=== PATIENT | female | born 1955 | race Hispanic/Latino ===

== ENCOUNTER 2023-05-29 09:36 | Observation (INO) | payer OTHER ==
--- NOTE | 2023-05-24 09:52 | RAD REPORT ---
EXAM DESCRIPTION: Miguel Melendez (2 Views)05/24/2023 9:41 am CLINICAL HISTORY: Preop for knee arthroplasty COMPARISON: 2021 FINDINGS: The lungs appear clear of acute infiltrate. The heart is normal size IMPRESSION: No acute abnormalities displayed
[2023-05-24 10:28] LABS: Absolute Lymphocytes (CBC) 2.5 K/uL (0.7-4.9); Hematocrit 38.8 % (36.0-45.0); Lymphocytes % 34.1 % (15.3-44.8); MCV 88.4 fL (80-100); MPV 7.9 fL (7.6-11.3); Platelets 342 thou/uL (152-406); RBC Red Blood Cell Count 4.39 M/uL (3.86-4.86)
[2023-05-24 10:35] LABS: Protime INR 1.07
[2023-05-24 10:43] LABS: Potassium 4.2 mEq/L (3.5-5.1)
[2023-05-29] MEDS ORDERED: CEFAZOLIN SODIUM 1 GM/VIAL ONE (09:53)
[2023-05-29] MEDS ORDERED: GABAPENTIN 100 MG CAP ONE (09:55)
[2023-05-29] MEDS ORDERED: Oxycodone HCl/Acetaminophen 5/325 MG TAB ONE (09:56)
[2023-05-29] MEDS ORDERED: ACETAMINOPHEN 500 MG TAB ONE (09:56)
[2023-05-29] MEDS ORDERED: Ringers Lactate 1,000 ML IV ONE (09:58)
[2023-05-29] MEDS ORDERED: CELECOXIB 100 MG CAPSULE ONE (09:58)
[2023-05-29] MEDS ORDERED: EPINEPHRINE 1 MG/ML VIAL ONE (09:59)
[2023-05-29] MEDS ORDERED: FENTANYL CITR 100 MCG/2 ML ONE (09:59)
[2023-05-29] MEDS ORDERED: DEXMEDETOMIDINE HCL 200 MCG/2 ML VIAL ONE (09:59)
[2023-05-29] MEDS ORDERED: LIDOCAINE 1% MPF 5 ML VIAL ONE (09:59)
[2023-05-29] MEDS ORDERED: dexAMETHasone 10 MG/ML VIAL ONE ×2 (09:59→11:23)
[2023-05-29] MEDS ORDERED: MAGNESIUM SULFATE 1 gm IVPB 1 GM/100 ML BAG IV ONE (10:00)
[2023-05-29] MEDS ORDERED: MIDAZOLAM HCL 2 MG/2 ML INJ ONE (10:00)
[2023-05-29] MEDS ORDERED: BUPIVACAINE 0.25% PF 30 ML VIAL ONE (10:00)
[2023-05-29] MEDS ORDERED: propofoL 200 MG/20 ML VIAL IV ONE (11:23)
[2023-05-29] MEDS ORDERED: ONDANSETRON 4 MG/2 ML VIAL ONE (11:23)
[2023-05-29] MEDS ORDERED: KETAMINE HCL IN 0.9 % NACL 50 MG/5 ML SYRINGE IV ONE (11:23)
[2023-05-29] MEDS ORDERED: LIDOCAINE 2% MPF 5 ML VIAL ONE (11:23)
[2023-05-29] MEDS ORDERED: KETOROLAC 30 MG/ML INJ ONE (11:23)
[2023-05-29] MEDS: TRANEXAMIC ACID 1,000 MG/10 ML VIAL IV ONE ×2 (11:50→12:34)
[2023-05-29] MEDS ORDERED: NS 0.9% VIAL 10 ML ONE (11:59)
[2023-05-29] MEDS ORDERED: ONDANSETRON 4 MG/2 ML VIAL IV PRN (13:57)
[2023-05-29] MEDS ORDERED: DOCUSATE NA 100 MG CAP PO PRN (13:57)
[2023-05-29] MEDS ORDERED: ACETAMINOPHEN 325 MG TABLET PO PRN (13:57)
--- NOTE | 2023-05-29 13:57 | P.BOP ---
Preoperative diagnosis: right knee osteoarthritis Postoperative diagnosis: same Primary procedure: right total knee arthroplasty Face Cleaner: NONE,NONE Estimated blood loss: 50 cc Specimen: right knee bone remnants Findings: see dictation Anesthesia: General Complications: None Implants: [employer] Chhaya Persona 9 CR femur, E tibia, 10 CR poly, 32 patella Fluids & blood products: per anesthesia record; TT: 63 mins @ 300 mmHg Transferred to: Recovery Room Condition: Good
[2023-05-29] MEDS ORDERED: TRAMADOL HCL 50 MG TAB PO PRN (13:59)
[2023-05-29 15:05] LABS: Hematocrit 36.6 % (36.0-45.0)
--- OUTSIDE RECORDS SUMMARY | 2023-05-29 15:13 | XMS REPORT | Continuity of Care Document ---
Author Name Unknown Address [address] [facility] [place]. [address] [place] [address] [facility] thconnect Address [address] [facility]. [address] [place] [address] Care Team Providers Care Barn Hand Name Role Phone Teofilo MONROE, [facility] Primary Care Physician [phone] Payers Payer Name Policy Type Policy Number Effective Date Expirati on Date Source [facility] MCR Advantage (HMO-POS) [id number] 2021 00:00:00 [facility] Problems Condition Name Condition Details Condition Category Status Onset Date Resolution Date Last Treatment Date Treating Clinician Comments Source [id number] Primary osteoarthr itis of right knee Problem [facility] Social History Social Habit Start Date Stop Date Quantity Comments Source Sex Assigned At [facility] History of Tobacco Use [facility] Smoking Status Start Date Stop Date Source Never Smoker [facility] Medications Ordered Medication Name Filled Medication Name Start Date Stop Date Current Medication? Ordering Clinician Indication Dosage Frequency Signature (SIG) Comments Components Source Nabumetone 750 MG Nabumetone 750 MG 11-26 00:00: 00 No BID Nabumetone 750 MG Nabumetone 750 MG Nabumetone 750 MG 11-26 00:00: 00 No BID Nabumetone 750 MG Nabumetone 750 MG Nabumetone 750 MG 3-0 7-24 00:00: 00 No BID Nabumetone 750 MG Nabumetone 750 MG Nabumetone 750 MG 3-0 7-24 00:00: 00 No BID Nabumetone 750 MG Nabumetone 750 MG Nabumetone 750 MG 3-0 7-24 00:00: 00 No BID Nabumetone 750 MG Nabumetone 750 MG Nabumetone 750 MG 3-0 7-24 00:00: 00 No BID Nabumetone 750 MG Nabumetone 750 MG Nabumetone 750 MG 3-0 7-24 00:00: 00 No BID Nabumetone 750 MG Nabumetone 750 MG Nabumetone 750 MG 3-0 7-24 00:00: 00 No BID Nabumetone 750 MG Nabumetone 750 MG Nabumetone 750 MG 3-0 7-24 00:00: 00 No BID Nabumetone 750 MG Nabumetone 750 MG Nabumetone 750 MG 3-0 7-24 00:00: 00 No BID Nabumetone 750 MG Nabumetone 750 MG Nabumetone 750 MG 3-0 7-24 00:00: 00 No BID Nabumetone 750 MG [facility] Hyalgan 2022-0 -22 00:00: 00 [facility] [place] Hyalgan 3-0 5-22 00:00: 00 No [facility]mL [facility] Hy[place] Hyalgan 3-0 -22 00:00: 00 No [facility]mL [facility] Hy[place] Hyalgan 3-0 5-22 00:00: 00 No [facility]mL [facility] Hy[facility] Hyalgan 3-0 -22 00:00: 00 No 2mL [facility] Hyalgan Hyalgan 3-0 5-22 00:00: 00 No [facility] Hyalgan Hyalgan 3-0 5-22 00:00: 00 No 2mL [facility] Hyalgan Hyalgan 3-0 5-22 00:00: 00 No 2mL [facility] Hyal[place] Hyalgan 2022-0 5-22 00:00: 00 No 2mL [facility] Hyal[place] Hyalgan 2022-0 5-22 00:00: 00 No 2mL [facility] Hyalgan Hyalgan 2022-0 5-22 00:00: 00 No 2mL [facility] Hyalgan Hyalgan 2022-0 5-15 00:00: 00 No 2mL [facility] Hyalgan Hyalgan 2022-0 5-15 00:00: 00 No 2mL [facility] Hyalgan Hyalgan 2022-0 5-15 00:00: 00 No 2mL [facility] Hyalgan Hyalgan 2022-0 5-15 00:00: 00 No 2mL [facility] Hyalgan Hyalgan 2022-0 5-15 00:00: 00 No 2mL [facility] Hyalgan Hyalgan 2022-0 5-15 00:00: 00 No 2mL [facility] Hyalgan Hyalgan 2022-0 5-15 00:00: 00 No 2mL [facility] Hyalgan Hyalgan 2022-0 5-15 00:00: 00 No 2mL [facility] Hyalgan Hyalgan 3-0 5-15 00:00: 00 No 2mL [facility] Hyalgan Hyalgan 3-0 5-15 00:00: 00 No 2mL [facility] Hyalgan Hyalgan 3-0 5-15 00:00: 00 No 2mL [facility] Hyalgan Hyalgan 3-0 5-08 00:00: 00 No 2mL [facility] Bupivicaine Axis Bupivicaine Axis 2022-0 5-08 00:00: 00 No 4mL [facility] Kenalog (Triamcinol one) Kenalog (Triamcinol one) 2022-0 5-08 00:00: 00 No [facility]mL [facility] Hyalgan Hyalgan 0 09-10 00:00: 00 No 2mL [facility] Bupivicaine Axis Bupivicaine Axis 0 09-10 00:00: 00 No 4mL [facility] Kenalog (Triamcinol one) Kenalog (Triamcinol one) 0 09-10 00:00: 00 No 1mL [facility] Hyalgan Hyalgan 0 09-10 00:00: 00 No 2mL [facility] Bupivicaine Axis Bupivicaine Axis 0 09-10 00:00: 00 No 4mL [facility] Kenalog (Triamcinol one) Kenalog (Triamcinol one) 0 09-10 00:00: 00 No 1mL [facility] Hyalgan Hyalgan 0 09-10 00:00: 00 No 2mL [facility] Bupivicaine Axis Bupivicaine Axis 0 09-10 00:00: 00 No 4mL [facility] Kenalog (Triamcinol one) Kenalog (Triamcinol one) 0 09-10 00:00: 00 No 1mL [facility] Hyalgan Hyalgan 0 09-10 00:00: 00 No 2mL [facility] Bupivicaine Axis Bupivicaine Axis 0 09-10 00:00: 00 No 4mL [facility] Kenalog (Triamcinol one) Kenalog (Triamcinol one) 0 09-10 00:00: 00 No 1mL [facility] Hyalgan Hyalgan 0 08 00:00: 00 No 2mL [facility] Bupivicaine Axis Bupivicaine Axis 0 08 00:00: 00 No 4mL [facility] Kenalog (Triamcinol one) Kenalog (Triamcinol one) 0 09-10 00:00: 00 No 1mL [facility] Hyalgan Hyalgan 0 09-10 00:00: 00 No 2mL [facility] Bupivicaine Axis Bupivicaine Axis 0 09-10 00:00: 00 No 4mL [facility] Kenalog (Triamcinol one) Kenalog (Triamcinol one) 09-10 00:00: 00 No 1mL [facility] Hyalgan Hyalgan 0 09-10 00:00: 00 No 2mL [facility] Bupivicaine Axis Bupivicaine Axis 09-10 00:00: 00 No 4mL [facility] Kenalog (Triamcinol one) Kenalog (Triamcinol one) 09-10 00:00: 00 No 1mL [facility] Hyalgan Hyalgan 0 09-10 00:00: 00 No 2mL [facility] Bupivicaine Axis Bupivicaine Axis 09-10 00:00: 00 No 4mL [facility] Kenalog (Triamcinol one) Kenalog (Triamcinol one) 09-10 00:00: 00 No 1mL [facility] Hyalgan Hyalgan 0 09-10 00:00: 00 No 2mL [facility] Bupivicaine Axis Bupivicaine Axis 0 09-10 00:00: 00 No 4mL [facility] Kenalog (Triamcinol one) Kenalog (Triamcinol one) 09-10 00:00: 00 No 1mL [facility] Hyalgan Hyalgan 0 09-10 00:00: 00 No 2mL [facility] Bupivicaine Axis Bupivicaine Axis 0 09-10 00:00: 00 No 4mL [facility] Kenalog (Triamcinol one) Kenalog (Triamcinol one) 0 5-08 00:00: 00 No 1mL [facility] Bupivicaine Axis Bupivicaine Axis 2021-05 0-24 00:00: 00 No 2.5mg [facility] Synvisc One Synvisc One 2021-05 0-24 00:00: 00 No 8mg [facility] Kenalog (Triamcinol one) Kenalog (Triamcinol one) 2021-05 0-24 00:00: 00 No 40mg [facility] Bupivicaine Axis Bupivicaine Axis 2021-05 024 00:00: 00 No 2.5mg [facility] Synvisc One Synvisc One 2021-05 0-24 00:00: 00 No 8mg [facility] Kenalog (Triamcinol one) Kenalog (Triamcinol one) 2021-05 0-24 00:00: 00 No 40mg [facility] Bupivicaine Axis Bupivicaine Axis 2021-05 024 00:00: 00 No 2.5mg [facility] Synvisc One Synvisc One 2021-05 024 00:00: 00 No 8mg [facility] Kenalog (Triamcinol one) Kenalog (Triamcinol one) 2021-05 0-24 00:00: 00 No 40mg [facility] Bupivicaine Axis Bupivicaine Axis 2021-05 0-24 00:00: 00 No 2.5mg [facility] Synvisc One Synvisc One 2021-05 0-24 00:00: 00 No 8mg [facility] Kenalog (Triamcinol one) Kenalog (Triamcinol one) 2021-05 0-24 00:00: 00 No 40mg [facility] Bupivicaine Axis Bupivicaine Axis 2021-05 024 00:00: 00 No 2.5mg [facility] Synvisc One Synvisc One 2021-05 024 00:00: 00 No 8mg [facility] Kenalog (Triamcinol one) Kenalog (Triamcinol one) 2021-05 0-24 00:00: 00 No 40mg [facility] Bupivicaine Axis Bupivicaine Axis 2021-05 024 00:00: 00 No 2.5mg [facility] Synvisc One Synvisc One 2021-05 024 00:00: 00 No 8mg [facility] Kenalog (Triamcinol one) Kenalog (Triamcinol one) 2021-05 024 00:00: 00 No 40mg [facility] Bupivicaine Axis Bupivicaine Axis 2021-05 024 00:00: 00 No 2.5mg [facility] Synvisc One Synvisc One 2021-05 024 00:00: 00 No 8mg [facility] Kenalog (Triamcinol one) Kenalog (Triamcinol one) 2021-05 024 00:00: 00 No 40mg [facility] Bupivicaine Axis Bupivicaine Axis 2021-05 024 00:00: 00 No 2.5mg [facility] Synvisc One Synvisc One 2021-05 024 00:00: 00 No 8mg [facility] Kenalog (Triamcinol one) Kenalog (Triamcinol one) 2021-05 0-24 00:00: 00 No 40mg [facility] Bupivicaine Axis Bupivicaine Axis 2021-05 0-24 00:00: 00 No 2.5mg [facility] Synvisc One Synvisc One 2021-05 0-24 00:00: 00 No 8mg [facility] Kenalog (Triamcinol one) Kenalog (Triamcinol one) 2021-05 0-24 00:00: 00 No 40mg [facility] Bupivicaine Axis Bupivicaine Axis 2021-05 0-24 00:00: 00 No 2.5mg [facility] Synvisc One Synvisc One 2021-05 0-24 00:00: 00 No 8mg [facility] Kenalog (Triamcinol one) Kenalog (Triamcinol one) 2021-05 0-24 00:00: 00 No 40mg [facility] Synvisc 1 Synvisc 1 2021-05 0-24 00:00: 00 No 8mg [facility] Bupivicaine Axis Bupivicaine Axis 2021-05 0-24 00:00: 00 No 2.5mg [facility] Kenalog (Triamcinol one) Kenalog (Triamcinol one) 2021-05 0-24 00:00: 00 No 40mg [facility] Synvisc 1 Synvisc 1 2021-05 0-24 00:00: 00 No 8mg [facility] Bupivicaine Axis Bupivicaine Axis 2021-05 024 00:00: 00 No 2.5mg [facility] Kenalog (Triamcinol one) Kenalog (Triamcinol one) 2021-05 0-24 00:00: 00 No 40mg [facility] Bupivicaine Axis Bupivicaine Axis 2021-05 0-24 00:00: 00 No 2.5mg [facility] Synvisc One Synvisc One 2021-05 0-24 00:00: 00 No 8mg [facility] Kenalog (Triamcinol one) Kenalog (Triamcinol one) 2021-05 0-24 00:00: 00 No 40mg [facility] TAKE 1 TABLET BY MOUTH ONCE DAILY 9-19 00:00: 00 No TAKE 1 TABLET BY MOUTH ONCE DAILY 0 19 00:00: 00 No TAKE 1 TABLET BY MOUTH ONCE DAILY 0 19 00:00: 00 No TAKE 1 TABLET BY MOUTH ONCE DAILY 0 19 00:00: 00 No INHALE 1 PUFF BY MOUTH TWICE DAILY 0 -24 00:00: 00 No TAKE 5 ML BY MOUTH EVERY 6 HOURS NEEDED 0 8-24 00:00: 00 No TAKE 5 ML BY MOUTH EVERY 6 HOURS NEEDED 0 -24 00:00: 00 No INHALE 1 PUFF BY MOUTH TWICE DAILY 0 24 00:00: 00 No TAKE 5 ML BY MOUTH EVERY 6 HOURS NEEDED 0 24 00:00: 00 No INHALE 1 PUFF BY MOUTH TWICE DAILY 0 24 00:00: 00 No TAKE 5 ML BY MOUTH EVERY 6 HOURS NEEDED 0 24 00:00: 00 No Nabumetone Nabumetone No Nabumetone Analgesic Cream/Aloe Analgesic Cream/Aloe No Analgesic Cream/Aloe Meloxicam 7.5 MG Meloxicam 7.5 MG No 1{table t} QD Meloxicam 7.5 MG Nabumetone Nabumetone No Nabumetone Analgesic Cream/Aloe Analgesic Cream/Aloe No Analgesic Cream/Aloe Meloxicam 7.5 MG Meloxicam 7.5 MG No 1{table t} QD Meloxicam 7.5 MG Nabumetone Nabumetone No Nabumetone Analgesic Cream/Aloe Analgesic Cream/Aloe No Analgesic Cream/Aloe Nabumetone Nabumetone No Nabumetone Analgesic Cream/Aloe Analgesic Cream/Aloe No Analgesic Cream/Aloe Meloxicam 7.5 MG Meloxicam 7.5 MG No 1{table t} QD Meloxicam 7.5 MG Meloxicam 7.5 MG Meloxicam 7.5 MG No 1{table t} QD Meloxicam 7.5 MG Nabumetone Nabumetone No Nabumetone Analgesic Cream/Aloe Analgesic Cream/Aloe No Analgesic Cream/Aloe Meloxicam 7.5 MG Meloxicam 7.5 MG No 1{table t} QD Meloxicam 7.5 MG Analgesic Cream/Aloe Analgesic Cream/Aloe No Analgesic Cream/Aloe Meloxicam 7.5 MG Meloxicam 7.5 MG No 1{table t} QD Meloxicam 7.5 MG Nabumetone Nabumetone No Nabumetone Eye Drops Eye Drops No Eye Drops Nabumetone Nabumetone No Nabumetone Analgesic Cream/Aloe Analgesic Cream/Aloe No Analgesic Cream/Aloe Analgesic Cream/Aloe Analgesic Cream/Aloe No Analgesic Cream/Aloe Eye Drops Eye Drops No Eye Drops Meloxicam 7.5 MG Meloxicam 7.5 MG No 1{table t} QD Meloxicam 7.5 MG Meloxicam 7.5 MG Meloxicam 7.5 MG No 1{table t} QD Meloxicam 7.5 MG Nabumetone Nabumetone No Nabumetone Analgesic Cream/Aloe Analgesic Cream/Aloe No Analgesic Cream/Aloe Eye Drops Eye Drops No Eye Drops Meloxicam 7.5 MG Meloxicam 7.5 MG No 1{table t} QD Meloxicam 7.5 MG Nabumetone Nabumetone No Nabumetone Eye Drops Eye Drops No Eye Drops Nabumetone Nabumetone No Nabumetone Meloxicam 7.5 MG Meloxicam 7.5 MG No 1{table t} QD Meloxicam 7.5 MG Nabumetone Nabumetone No Nabumetone Vitamin C 500 MG Vitamin C 500 MG No Vitamin C 500 MG Analgesic Cream/Aloe Analgesic Cream/Aloe No Analgesic Cream/Aloe Analgesic Cream/Aloe Analgesic Cream/Aloe No Analgesic Cream/Aloe Eye Drops Eye Drops No Eye Drops Meloxicam 7.5 MG Meloxicam 7.5 MG No 1{table t} QD Meloxicam 7.5 MG Nabumetone Nabumetone No Nabumetone Meloxicam 7.5 MG Meloxicam 7.5 MG No 1{table t} QD Meloxicam 7.5 MG Vitamin C 500 MG Vitamin C 500 MG No Vitamin C 500 MG Analgesic Cream/Aloe Analgesic Cream/Aloe No Analgesic Cream/Aloe Eye Drops Eye Drops No Eye Drops Meloxicam 7.5 MG Meloxicam 7.5 MG No 1{table t} QD Meloxicam 7.5 MG Nabumetone Nabumetone No Nabumetone Vitamin C 500 MG Vitamin C 500 MG No Vitamin C 500 MG Analgesic Cream/Aloe Analgesic Cream/Aloe No Analgesic Cream/Aloe Nabumetone Nabumetone No Nabumetone Analgesic Cream/Aloe Analgesic Cream/Aloe No Analgesic Cream/Aloe Meloxicam 7.5 MG Meloxicam 7.5 MG No 1{table t} QD Meloxicam 7.5 MG Nabumetone Nabumetone No Nabumetone Analgesic Cream/Aloe Analgesic Cream/Aloe No Analgesic Cream/Aloe Meloxicam 7.5 MG Meloxicam 7.5 MG No 1{table t} QD Meloxicam 7.5 MG Nabumetone Nabumetone No Nabumetone Analgesic Cream/Aloe Analgesic Cream/Aloe No Analgesic Cream/Aloe Meloxicam 7.5 MG Meloxicam 7.5 MG No 1{table t} QD Meloxicam 7.5 MG Nabumetone Nabumetone No Nabumetone Analgesic Cream/Aloe Analgesic Cream/Aloe No Analgesic Cream/Aloe Meloxicam 7.5 MG Meloxicam 7.5 MG No 1{table t} QD Meloxicam 7.5 MG Nabumetone Nabumetone No Nabumetone Analgesic Cream/Aloe Analgesic Cream/Aloe No Analgesic Cream/Aloe Meloxicam 7.5 MG Meloxicam 7.5 MG No 1{table t} QD Meloxicam 7.5 MG Nabumetone Nabumetone No Nabumetone Meloxicam 7.5 MG Meloxicam 7.5 MG No 1{table t} QD Meloxicam 7.5 MG Analgesic Cream/Aloe Analgesic Cream/Aloe No Analgesic Cream/Aloe Analgesic Cream/Aloe Analgesic Cream/Aloe No Analgesic Cream/Aloe Meloxicam 7.5 MG Meloxicam 7.5 MG No 1{table t} QD Meloxicam 7.5 MG Nabumetone Nabumetone No Nabumetone Nabumetone Nabumetone No Nabumetone Analgesic Cream/Aloe Analgesic Cream/Aloe No Analgesic Cream/Aloe Meloxicam 7.5 MG Meloxicam 7.5 MG No 1{table t} QD Meloxicam 7.5 MG Vital Signs Vital Name Observation Time Observation Value Comments S cosmo height 2023-03-26 13:00:00 65 [in_i] Commo n [facility] weight 2023-03-26 13:00:00 166 [lb_av] Comm on [facility] temperature 2023-03-26 13:00:00 97.9 [degF] Com mon [facility] bmi 2023-03-26 13:00:00 27.62 kg/m2 Comm on [facility] blood pressure systolic 2023-03-26 13:00:00 134 mm[Hg] [facility] blood pressure diastolic 2023-03-26 13:00:00 84 mm[Hg] Common [facility] height 2022-09-24 11:15:00 65 [in_i] Commo n [facility] weight 2022-09-24 11:15:00 160 [lb_av] Comm on [facility] bmi 2022-09-24 11:15:00 26.62 kg/m2 Comm on [facility] blood pressure systolic 2022-09-24 11:15:00 134 mm[Hg] [facility] blood pressure diastolic 2022-09-24 11:15:00 81 mm[Hg] Common [facility] height 2022-09-10 13:45:00 65 [in_i] Commo n [facility] weight 2022-09-10 13:45:00 160 [lb_av] Comm on [facility] temperature 2022-09-10 13:45:00 98.1 [degF] Com mon [facility] bmi 2022-09-10 13:45:00 26.62 kg/m2 Comm on [facility] blood pressure systolic 2022-09-10 13:45:00 120 mm[Hg] [facility] blood pressure diastolic 2022-09-10 13:45:00 74 mm[Hg] [facility] height 2022-07-05 09:15:00 65 [in_i] Commo n [facility] weight 2022-07-05 09:15:00 160 [lb_av] Comm on [facility] temperature 2022-07-05 09:15:00 98.2 [degF] Com [facility] bmi 2022-07-05 09:15:00 26.62 kg/m2 Comm on [facility] blood pressure systolic 2022-07-05 09:15:00 120 mm[Hg] [facility] blood pressure diastolic 2022-07-05 09:15:00 76 mm[Hg] [facility] height 2022-05-08 10:15:00 65 [in_i] Commo n [facility] weight 2022-05-08 10:15:00 167 [lb_av] Comm on [facility] temperature 2022-05-08 10:15:00 98.0 [degF] Com [facility] bmi 2022-05-08 10:15:00 27.79 kg/m2 Comm on [facility] blood pressure systolic 2022-05-08 10:15:00 122 mm[Hg] [facility] blood pressure diastolic 2022-05-08 10:15:00 78 mm[Hg] [facility] height 2022-02-26 10:30:00 65 [in_i] Commo n [facility] weight 2022-02-26 10:30:00 166.3 [lb_av] Co mmon [facility] temperature 2022-02-26 10:30:00 97.3 [degF] Com [facility] bmi 2022-02-26 10:30:00 27.67 kg/m2 Comm on [facility] blood pressure systolic 2022-02-26 10:30:00 128 mm[Hg] [facility] blood pressure diastolic 2022-02-26 10:30:00 80 mm[Hg] [facility] 2021-12-26 09:00:00 65 [in_i] Commo n [facility] weight 2021-12-26 09:00:00 160 [lb_av] Comm on [facility] temperature 2021-12-26 09:00:00 97.5 [degF] Com mon [facility] bmi 2021-12-26 09:00:00 26.62 kg/m2 Comm on [facility] blood pressure systolic 2021-12-26 09:00:00 116 mm[Hg] Common [facility] blood pressure diastolic 2021-12-26 09:00:00 72 mm[Hg] Common [facility] bmi 2021-11-09 13:30:00 27.92 kg/m2 Comm on [facility] blood pressure systolic 2021-11-09 13:30:00 134 mm[Hg] Common [facility] blood pressure diastolic 2021-11-09 13:30:00 74 mm[Hg] Common [facility] height 2021-11-09 13:30:00 65 [in_i] Commo n [facility] weight 2021-11-09 13:30:00 167.8 [lb_av] Co mmon [facility] temperature 2021-11-09 13:30:00 97.6 [degF] Com mon [facility] BP Systolic 2022-04-10 10:15:00 124 mm[Hg] BP Diastolic 2022-04-10 10:15:00 75 mm[Hg] Weight Measured 2022-04-10 10:15:00 165.00 pounds Height Measured 2022-04-10 10:15:00 66.00 inches Body Temperature 2022-04-10 10:15:00 98.70 degrees Heart Rate 2022-04-10 10:15:00 61.00 /min Respiratory Rate 2022-04-10 10:15:00 18.00 /min BP Systolic 2022-03-14 15:08:00 117 mm[Hg] BP Diastolic 2022-03-14 15:08:00 73 mm[Hg] Weight Measured 2022-03-14 15:08:00 164.40 pounds Height Measured 2022-03-14 15:08:00 66.00 inches Body Temperature 2022-03-14 15:08:00 98.30 degrees Heart Rate 2022-03-14 15:08:00 69.00 /min Respiratory Rate 2022-03-14 15:08:00 18.00 /min BP Systolic 2022-02-20 10:50:00 134 mm[Hg] BP Diastolic 2022-02-20 10:50:00 81 mm[Hg] Weight Measured 2022-02-20 10:50:00 166.60 pounds Height Measured 2022-02-20 10:50:00 66.00 inches Body Temperature 2022-02-20 10:50:00 98.10 degrees Heart Rate 2022-02-20 10:50:00 63.00 /min Respiratory Rate 2022-02-20 10:50:00 18.00 /min Heart Rate 2022-01-23 15:14:00 73.00 /min Respiratory Rate 2022-01-23 15:14:00 18.00 /min BP Systolic 2022-01-23 15:14:00 129 mm[Hg] BP Diastolic 2022-01-23 15:14:00 77 mm[Hg] Weight Measured 2022-01-23 15:14:00 165.20 pounds Height Measured 2022-01-23 15:14:00 66.00 inches Body Temperature 2022-01-23 15:14:00 98.30 degrees Plan of Care Planned Activity Planned Date Details Comments Source Goal Plan of Care Note [code = 73157-9] Goal Plan of Care Note [code = 27949-5] Goal Plan of Care Note [code = 66767-8] Goal Plan of Care Note [code = 50482-1] Goal Plan of Care Note [code = 30260-0] Goal Plan of Care Note [code = 57689-9] Goal Plan of Care Note [code = 44318-0] Goal Plan of Care Note [code = 30226-2] Goal Plan of Care Note [code = 33264-1] Goal Plan of Care Note [code = 46454-3] Goal Plan of Care Note [code = 04219-6] Goal Plan of Care Note [code = 88261-3] Goal Plan of Care Note [code = 83484-1] Goal Plan of Care Note [code = 33043-8] Goal Plan of Care Note [code = 04579-4] Goal Plan of Care Note [code = 57223-9] Goal Plan of Care Note [code = 32738-2] Goal Plan of Care Note [code = 78862-8] Goal Plan of Care Note [code = 38567-7] Goal Plan of Care Note [code = 30208-5] Goal Plan of Care Note [code = 45712-2] Goal Plan of Care Note [code = 00702-0] Goal Plan of Care Note [code = 93522-3] Goal Plan of Care Note [code = 64041-1] Goal Plan of Care Note [code = 30296-2] Goal Plan of Care Note [code = 11111-3] Goal Plan of Care Note [code = 43220-5] Goal Plan of Care Note [code = 37799-6] Goal Plan of Care Note [code = 28035-8] Goal Plan of Care Note [code = 22046-0] Goal Plan of Care Note [code = 34180-9] Goal Plan of Care Note [code = 44995-1] Goal Plan of Care Note [code = 33066-6] Goal Plan of Care Note [code = 73867-2] Goal Plan of Care Note [code = 63066-6] Goal Plan of Care Note [code = 28601-4] Goal Plan of Care Note [code = 05884-3] Goal Plan of Care Note [code = 23918-8] Goal Plan of Care Note [code = 73343-4] Goal Plan of Care Note [code = 43964-0] Goal Plan of Care Note [code = 43811-1] Goal Plan of Care Note [code = 33244-9] Goal Plan of Care Note [code = 88441-5] Goal Plan of Care Note [code = 62925-5] Encounters Start Date/Time End Date/Time Encounter Type Admission Type Attending [facility] Care Department Encounter ID Source 2022-05-08 11:36:02 Outpatient [facility] [id number] [facility] 2021-12-26 08:51:03 Outpatient [facility] [id number] [facility] 2021-11-09 13:18:02 Outpatient [facility] [id number] [facility] 2023-05-14 08:50:54 2023-05-14 08:50:54 Outpatient SFA SFA [id number] 0109 Tani Choudhury 2023-05-07 09:38:03 2023-05-07 09:38:03 Outpatient SFA SFA [id number] 010 Tani Choudhury 2023-04-01 10:21:38 2023-04-01 10:21:38 Outpatient SFA SFA 1127 Tani Choudhury 2023-04-01 00:00:00 2023-04-01 00:00:00 (TEL) STLMLC STLMLC [id number] [facility] 2023-03-26 10:13:14 2023-03-26 10:13:14 Outpatient SFA SFA 112 Tani Choudhury 2023-03-26 00:00:00 2023-03-26 00:00:00 OFFICE VISIT ESTAB PT LEVEL 4 STLMLC STLMLC [id number] [facility] 2023-02-13 09:16:54 2023-02-13 09:16:54 Outpatient SFA SFA [id number] 1011 Tani Choudhury 2023-02-05 09:54:09 2023-02-05 09:54:09 Outpatient SFA SFA [id number] 1003 Tani Choudhury 2023-02-04 09:04:51 2023-02-04 09:04:51 Outpatient SFA SFA [id number] 1002 Tani Choudhury 2023-02-01 13:34:12 2023-02-01 13:34:12 Outpatient SFA SFA [id number] 0929 aTni Choudhury 2023-01-29 11:36:01 2023-01-29 11:36:01 Outpatient SFA SFA [id number] 0926 Tani Choudhury 2023-01-28 08:11:51 2023-01-28 08:11:51 Outpatient SFA [facility] 0925 Tani Choudhury 2023-01-16 13:51:47 2023-01-16 13:51:47 Outpatient SFA SFA 0913 Tani Choudhury 2022-12-19 13:07:25 2022-12-19 13:07:25 Outpatient SFA [facility] 08 Tani Choudhury 2022-12-10 11:44:39 2022-12-10 11:44:39 Outpatient SFA [facility] 0807 Tani Choudhury 2022-12-05 00:00:00 2022-12-05 00:00:00 (TEL) STLMLC STLMLC [id number] [facility] 2022-12-04 16:46:31 2022-12-04 16:46:31 Outpatient SFA [facility] 0801 Tani Choudhury 2022-12-03 00:00:00 2022-12-03 00:00:00 (TEL) STLMLC STLMLC [id number] [facility] 2022-11-16 00:00:00 2022-11-16 00:00:00 (TEL) STLMLC STLMLC [id number] [facility] 2022-10-29 09:49:49 2022-10-29 09:49:49 Outpatient SFA [facility] 0626 Tani Choudhury 2022-09-24 00:00:00 2022-09-24 00:00:00 (IN/ASP) INJ ASP STLMLC STLMLC [id number] [facility] 2022-09-10 00:00:00 2022-09-10 00:00:00 OFFICE VISIT ESTAB PT LEVEL 4 STLMLC STLMLC [id number] [facility] 2022-07-05 00:00:00 2022-07-05 00:00:00 OFFICE VISIT ESTAB PT LEVEL 4 STLMLC STLMLC [id number] [facility] 2022-07-05 00:00:00 2022-07-05 00:00:00 (TEL) STLMLC STLMLC [id number] [facility] 2022-06-11 09:52:50 2022-06-11 09:52:50 Outpatient SFA SFA [id number] 0206 Tani Choudhury 2022-05-10 09:40:49 2022-05-10 09:40:49 Outpatient SFA SFA 5 Tani Choudhury 2022-05-08 08:17:10 2022-05-08 08:17:10 Outpatient SFA SFA 102 Tani Choudhury 2022-05-08 00:00:00 2022-05-08 00:00:00 OFFICE VISIT ESTAB PT LEVEL 4 STLMLC STLMLC [id number] [facility] 2022-04-10 10:09:27 2022-04-10 10:09:27 Outpatient SFA SFA 1206 Tani Choudhury 2022-04-10 00:00:00 2022-04-10 00:00:00 Outpatient Visit [id number] 2022-03-14 14:37:30 2022-03-14 14:37:30 Outpatient SFA SFA [id number] 1109 Tani Choudhury 2022-03-14 00:00:00 2022-03-14 00:00:00 Outpatient Visit [id number] 2022-02-26 00:00:00 2022-02-26 00:00:00 (IN/ASP) INJ ASP STLMLC STLMLC [id number] [facility] 2022-02-21 00:00:00 2022-02-21 00:00:00 (TEL) STLMLC STLMLC [id number] [facility] 2022-02-20 10:49:43 2022-02-20 10:49:43 Outpatient SFA [facility] [id number] 1018 Tani Choudhury 2022-02-20 00:00:00 2022-02-20 00:00:00 Outpatient Visit [id number] 2022-02-09 00:00:00 2022-02-09 00:00:00 (TEL) STLMLC STLMLC [id number] [facility] 2022-01-23 00:00:00 2022-01-23 00:00:00 Outpatient Visit [id number] 2021-12-26 00:00:00 2021-12-26 00:00:00 (TEL) STLMLC STLMLC [id number] [facility] 2021-12-26 00:00:00 2021-12-26 00:00:00 OFFICE VISIT ESTAB PT LEVEL 4 STLMLC STLMLC [id number] [facility] 2021-12-26 00:00:00 2021-12-26 00:00:00 (TEL) STLMLC STLMLC [id number] [facility] 2021-11-17 00:00:00 2021-11-17 00:00:00 (TEL) STLMLC STLMLC [id number] [facility] 2021-11-09 00:00:00 2021-11-09 00:00:00 OFFICE VISIT NEW PT LEVEL 4 STLMLC STLMLC [id number] [facility] Results Test Description Test Time Test Comments Results Result Co mments Source VITAMIN [id number] 06:54:24* Test Item Value Reference Range Interpretation Comme nts VITAMIN B-12 (test code = 2840) 391 PG/ML 200-950 SEDIMENTATION [id number] 05:03:30* Test Item Value Reference Range Interpretation Comme nts SEDIMENTATION RATE (test cod e = 1017) 15 MM/HOUR 0-20 HIV 1/2 4TH GEN, RFLX [id number] 04:23:00* Test Item Value Reference Range Interpretation Comme nts HIV 1/2 4TH GEN, RFLX CONF ( test code = 3514) NON-REACTIVE NON-REACTIVE CBC W/AUTO DIFF WITH [id number] 04:07:57* Test Item Value Reference Range Interpretation Comme nts WBC (test code = 1001) 6.6 K/UL 3.5-11.0 RBC (test code = 1002) 4.34 M/UL 3.80-5.40 HEMOGLOBIN (test code = 1003) 12.7 G/DL 11.5-15.5 HEMATOCRIT (test code = 1004) 37.9 % 34.0-45.0 MCV (test code = 1005) 87.3 fL 80.0-99.0 MCH (test code = 1006) 29.3 PG 25.0-33.0 MCHC (test code = 1007) 33.5 G/DL 31.0-36.0 RDW (test code = 1038) 11.7 % 11.5-15.0 NEUTROPHILS (test code = 1008) 50.8 % LYMPHOCYTES (test code = 1010) 36.2 % MONOCYTES (test code = 1011) 6.7 % EOSINOPHILS (test code = 1012) 5.0 % BASOPHILS (test code = 1013) 1.1 % IMMATURE GRANULOCYTES (test code = 1036) 0.2 % NUCLEATED RBCS (test code = 1065) 0.0 /100 WBC'S See_Comment [Automated messa ge] The system which generated this result transmitted reference range: 0.0. The reference range was not used to interpret this result as normal/abnormal. PLATELET COUNT (test code = 1015) 380 K/UL 130-400 ABSOLUTE NEUTROPHILS (test code = 1066) 3.36 K/UL 1.50-7.50 ABSOLUTE LYMPHOCYTES (test code = 1067) 2.39 K/UL 1.00-4.00 ABSOLUTE MONOCYTES (test code = 1068) 0.44 K/UL 0.20-1.00 ABSOLUTE EOSINOPHILS (test code = 1040) 0.33 K/UL 0.00-0.50 ABSOLUTE BASOPHILS (test code = 1069) 0.07 K/UL 0.00-0.20 ABS IMMATURE GRANULOCYTES (test code = 1020) 0.01 K/UL 0.00-0.10 ABS NUCLEATED RBCS (test code = 43335) 0.00 K/UL 0.00-0.11 TSH, THIRD [id number] 03:41:44* Test Item Value Reference Range Interpretation Comme nts TSH, THIRD GENERATION (test code = 2821) 3.140 UIU/ML 0.400-4.100 LIPID [id number] 03:41:02* Test Item Value Reference Range Interpretation Comme nts CHOLESTEROL (test code = 2210) 186 MG/DL <200 TRIGLYCERIDES (test code = 2232) 81 MG/DL <150 HDL CHOLESTEROL (test code = 2220) 50 MG/DL >39 CALC LDL CHOL (test code = 2237) 118 MG/DL <100 H NOTE: CALCULATED LDL IS BASED ON NICOL-BLANCHARD METHOD WHICHINCLUDES ADJUSTABLE TRIGLYCERIDE:VLDL CHOLESTEROL RATIO.THIS FACTOR VARIES BY MEASURED TRIGLYCERIDE AND NON-HDLCHOLESTEROL CONCENTRATIONS WITH INCREASED CALCULATED LDL SEENIN HIGHER TRIGLYCERIDE OR LOWER NON-HDL SPECIMENS. FOR MOREINFORMATION, SEE CLIENT ANNOUNCEMENT AT [email or web address] /CalcLDL-C RISK RATIO LDL/HDL (test code = 2238) 2.36 RATIO <3.22 UNLESS OTHERW ISE INDICATED, ALL TESTING PERFORMED AT [facility] [address] [place] [address] WEDDING DAY COORDINATOR: JERRY QUEEN M.D. IA NUMBER [id number] [facility] [place]. [id number] COMPREHENSIVE METABOLIC [id number] 03:41:02* Test Item Value Reference Range Interpretation Comme nts GLUCOSE (test code = 2217) 93 MG/DL 70-99 BUN (test code = 2208) 19 MG/DL 8-23 CREATININE (test code = 2214) 0.63 MG/DL 0.60-1.30 eGFR (2020 CKD-EPI) (test co de = 34037) 98 ML/MIN/1.73 >60 CALC BUN/CREAT (test code = 2235) 30 RATIO 6-28 H SODIUM (test code = 2231) 138 MEQ/L 133-146 POTASSIUM (test code = 2227) 4.0 MEQ/L 3.5-5.4 CHLORIDE (test code = 2215) 100 MEQ/L 95-107 CARBON DIOXIDE (test code = 220) 26 MEQ/L 19-31 CALCIUM (test code = 2208) 9.4 MG/DL 8.5-10.5 PROTEIN, TOTAL (test code = 2228) 7.4 G/DL 6.1-8.3 ALBUMIN (test code = 2200) 4.9 G/DL 3.5-5.2 CALC GLOBULIN (test code = 2240) 2.5 G/DL 1.9-3.7 CALC A/G RATIO (test code = 2233) 2.0 RATIO 1.0-2.6 BILIRUBIN, TOTAL (test code = 2206) 0.6 MG/DL <=1.2 ALKALINE PHOSPHATASE (test code = 2203) 58 U/L 40-142 AST (test code = 2217) 13 U/L 9-40 ALT (test code = 2218) 8 U/L 5-40 [id number] 03:38:01* Test Item Value Reference Range Interpretation Comme nts RPR RESULT (test code = 3501) NON-REACTIVE NON-REACTIVE RPR TITER (test code = 3500) NOT INDIC. TITER NOT INDIC. COMPREHENSIVE METABOLIC [id number] 06:03:26* Test Item Value Reference Range Interpretation Comme nts GLUCOSE (test code = 7) 97 MG/DL 70-99 BUN (test code = 2207) 23 MG/DL 8-23 CREATININE (test code = 2213) 0.60 MG/DL 0.60-1.30 eGFR (2020 CKD-EPI) (test code = 35361) 100 ML/MIN/1.73 >60 CALC BUN/CREAT (test code = 2235) 38 RATIO 6-28 H SODIUM (test code = 223) 142 MEQ/L 133-146 POTASSIUM (test code = 8) 4.5 MEQ/L 3.5-5.4 CHLORIDE (test code = 2215) 101 MEQ/L 95-107 CARBON DIOXIDE (test code = 2205) 28 MEQ/L 19-31 CALCIUM (test code = 2208) 9.7 MG/DL 8.5-10.5 PROTEIN, TOTAL (test code = 2228) 7.2 G/DL 6.1-8.3 ALBUMIN (test code = 2201) 4.9 G/DL 3.5-5.2 CALC GLOBULIN (test code = 2240) 2.3 G/DL 1.9-3.7 CALC A/G RATIO (test code = 2234) 2.1 RATIO 1.0-2.6 BILIRUBIN, TOTAL (test code = 2207) 0.5 MG/DL See_Comment [Automated me ssage] The system which generated this result transmitted reference range: <=1.2. The reference range was not used to interpret this result as normal/abnormal. ALKALINE PHOSPHATASE (test code = 2203) 65 U/L 40-140 AST (test code = 2218) 15 U/L 9-40 ALT (test code = 2219) 15 U/L 5-40 [facility] has important pathology staff changes effective 07/04/2022. New pathology staff will provide uninterrupted, excellent patient care and clinical consultation. See URL: [email or web address] [email or web address]. UNLESS OTHERWISE INDICATED, ALL TESTING PERFORMED AT [facility] [address] [place] [address] CLIA: [id number], CAP: [id number] SEDIMENTATION [id number] 06:49:53* Test Item Value Reference Range Interpretation Comme nts SEDIMENTATION RATE (test code = 1017) 8 MM/HOUR 0-20 UNLESS OTHERW ISE INDICATED, [facility] [address] [place] [id number] WEDDING DAY COORDINATOR: KOKI KIM M.D. CLIA NUMBER [id number] [place]. [id number] TSH, THIRD [id number] 06:32:46* Test Item Value Reference Range Interpretation Comme nts TSH, THIRD GENERATION (test code = 2821) 2.290 UIU/ML 0.400-4.100 COMPREHENSIVE METABOLIC [id number] 04:45:18* Test Item Value Reference Range Interpretation Comme nts GLUCOSE (test code = 2217) 99 MG/DL 70-99 BUN (test code = 2208) 16 MG/DL 8-23 CREATININE (test code = 2214) 0.58 MG/DL 0.60-1.30 L eGFR (2020 CKD-EPI) (test code = ) 100 ML/MIN/1.73 >60 CALC BUN/CREAT (test code = 2234) 28 RATIO 6-28 SODIUM (test code = 2230) 142 MEQ/L 133-146 POTASSIUM (test code = 2227) 4.0 MEQ/L 3.5-5.4 CHLORIDE (test code = 2214) 103 MEQ/L 95-107 CARBON DIOXIDE (test code = 2205) 25 MEQ/L 19-31 CALCIUM (test code = 2208) 9.8 MG/DL 8.5-10.5 PROTEIN, TOTAL (test code = 2228) 7.4 G/DL 6.1-8.3 ALBUMIN (test code = 2200) 4.6 G/DL 3.5-5.2 CALC GLOBULIN (test code = 2239) 2.8 G/DL 1.9-3.7 CALC A/G RATIO (test code = 2233) 1.6 RATIO 1.0-2.6 BILIRUBIN, TOTAL (test code = 2206) 0.5 MG/DL See_Comment [Automated me ssage] The system which generated this result transmitted reference range: <=1.2. The reference range was not used to interpret this result as normal/abnormal. ALKALINE PHOSPHATASE (test code = 2203) 69 U/L 40-140 AST (test code = 2217) 15 U/L 9-40 ALT (test code = 2218) 13 U/L 5-40 C-REACTIVE [id number] 04:11:15* Test Item Value Reference Range Interpretation Comme nts C-REACTIVE PROTEIN (test cod e = 3513) 0.4 MG/DL <0.5 CBC W/AUTO DIFF WITH [id number] 02:35:50* Test Item Value Reference Range Interpretation Comme nts WBC (test code = 1001) 6.7 K/UL 3.5-11.0 RBC (test code = 1002) 4.41 M/UL 3.80-5.40 HEMOGLOBIN (test code = 1003) 13.3 G/DL 11.5-15.5 HEMATOCRIT (test code = 1004) 39.1 % 34.0-45.0 MCV (test code = 1005) 88.7 fL 80.0-99.0 MCH (test code = 1006) 30.2 PG 25.0-33.0 MCHC (test code = 1007) 34.0 G/DL 31.0-36.0 RDW (test code = 1038) 12.2 % 11.5-15.0 NEUTROPHILS (test code = 1008) 50.2 % LYMPHOCYTES (test code = 1010) 38.2 % MONOCYTES (test code = 1011) 6.5 % EOSINOPHILS (test code = 1012) 4.3 % BASOPHILS (test code = 1013) 0.7 % NUCLEATED RBCS (test code = 1065) 0.0 /100 WBC'S See_Comment [Automated messa ge] The system which generated this result transmitted reference range: 0.0. The reference range was not used to interpret this result as normal/abnormal. PLATELET COUNT (test code = 1015) 355 K/UL 130-400 ABSOLUTE NEUTROPHILS (test code = 1066) 3.36 K/UL 1.50-7.50 ABSOLUTE LYMPHOCYTES (test code = 1067) 2.57 K/UL 1.00-4.00 ABSOLUTE MONOCYTES (test code = 1068) 0.44 K/UL 0.20-1.00 ABSOLUTE EOSINOPHILS (test code = 1040) 0.29 K/UL 0.00-0.50 ABSOLUTE BASOPHILS (test code = 1069) 0.05 K/UL 0.00-0.20 ABS NUCLEATED RBCS (test code = 04595) 0.00 K/UL 0.00-0.11 CBC W/AUTO DIFF WITH [id number] 05:49:49* Test Item Value Reference Range Interpretation Comme nts WBC (test code = 1001) 8.0 K/UL 3.5-11.0 RBC (test code = 1002) 4.52 M/UL 3.80-5.40 HEMOGLOBIN (test code = 1003) 13.1 G/DL 11.5-15.5 HEMATOCRIT (test code = 1004) 40.4 % 34.0-45.0 MCV (test code = 1005) 89.4 fL 80.0-99.0 MCH (test code = 1006) 29.0 PG 25.0-33.0 MCHC (test code = 1007) 32.4 G/DL 31.0-36.0 RDW (test code = 1038) 12.6 % 11.5-15.0 NEUTROPHILS (test code = 1008) 57.2 % LYMPHOCYTES (test code = 1010) 31.4 % MONOCYTES (test code = 1011) 6.4 % EOSINOPHILS (test code = 1012) 3.9 % BASOPHILS (test code = 1013) 0.8 % IMMATURE GRANULOCYTES (test code = 1036) 0.3 % NUCLEATED RBCS (test code = 1065) 0.0 /100 WBC'S See_Comment [Automated [employer] ge] The system which generated this result transmitted reference range: 0.0. The reference range was not used to interpret this result as normal/abnormal. PLATELET COUNT (test code = 1015) 333 K/UL 130-400 ABSOLUTE NEUTROPHILS (test code = 1066) 4.56 K/UL 1.50-7.50 ABSOLUTE LYMPHOCYTES (test code = 1067) 2.50 K/UL 1.00-4.00 ABSOLUTE MONOCYTES (test code = 1068) 0.51 K/UL 0.20-1.00 ABSOLUTE EOSINOPHILS (test code = 1040) 0.31 K/UL 0.00-0.50 ABSOLUTE BASOPHILS (test code = 1069) 0.06 K/UL 0.00-0.20 ABS IMMATURE GRANULOCYTES (test code = 1020) 0.02 K/UL 0.00-0.10 ABS NUCLEATED RBCS (test code = 54347) 0.00 K/UL 0.00-0.11 TSH, THIRD [id number] 05:36:23* Test Item Value Reference Range Interpretation Comme nts TSH, THIRD GENERATION (test code = 2821) 2.590 UIU/ML 0.400-4.100 UNLESS OTHERWISE INDICATED, [facility] [address] [place] [address] WEDDING DAY COORDINATOR: KOKI KIM M.D. CLIA NUMBER [id number] [facility] [place]. [id number] COMPREHENSIVE METABOLIC [id number] 03:32:21* Test Item Value Reference Range Interpretation Comme nts GLUCOSE (test code = 2217) 84 MG/DL 70-99 BUN (test code = 2208) 26 MG/DL 8-23 H CREATININE (test code = 2214) 0.65 MG/DL 0.60-1.30 eGFR (2020 CKD-EPI) (test code = 87775) 98 ML/MIN/1.73 >60 CALC BUN/CREAT (test code = 2235) 40 RATIO 6-28 H SODIUM (test code = 2230) 141 MEQ/L 133-146 POTASSIUM (test code = 2228) 4.8 MEQ/L 3.5-5.4 CHLORIDE (test code = 2215) 101 MEQ/L 95-107 CARBON DIOXIDE (test code = 2205) 27 MEQ/L 19-31 CALCIUM (test code = 2208) 9.5 MG/DL 8.5-10.5 PROTEIN, TOTAL (test code = 2228) 7.5 G/DL 6.1-8.3 ALBUMIN (test code = 2200) 4.7 G/DL 3.5-5.2 CALC GLOBULIN (test code = 2239) 2.8 G/DL 1.9-3.7 CALC A/G RATIO (test code = 2233) 1.7 RATIO 1.0-2.6 BILIRUBIN, TOTAL (test code = 2206) 0.6 MG/DL See_Comment [Automated me ssage] The system which generated this result transmitted reference range: <=1.2. The reference range was not used to interpret this result as normal/abnormal. ALKALINE PHOSPHATASE (test code = 2203) 82 U/L 40-140 AST (test code = 2217) 20 U/L 9-40 ALT (test code = 221) 32 U/L 5-40 LIPID [id number] 03:32:21* Test Item Value Reference Range Interpretation Comme nts CHOLESTEROL (test code = 221) 194 MG/DL <200 TRIGLYCERIDES (test code = 2232) 81 MG/DL <150 HDL CHOLESTEROL (test code = 2220) 49 MG/DL >39 CALC LDL CHOL (test code = 2236) 127 MG/DL <100 H NOTE: CALCULATED LDL IS BASED ON NICOL-BLANCHARD METHOD WHICHINCLUDES ADJUSTABLE TRIGLYCERIDE:VLDL CHOLESTEROL RATIO.THIS FACTOR VARIES BY MEASURED TRIGLYCERIDE AND NON-HDLCHOLESTEROL CONCENTRATIONS WITH INCREASED CALCULATED LDL SEENIN HIGHER TRIGLYCERIDE OR LOWER NON-HDL SPECIMENS. FOR MOREINFORMATION, SEE CLIENT ANNOUNCEMENT AT [email or web address] /[email or web address] RISK RATIO LDL/HDL (test code = 223) 2.59 RATIO <3.22 CBC W/AUTO [id number] 00:00:00* Test Item Value Reference Range Interpretation Comme nts WBC (test code = 1001) 8.0 K/UL RBC (test code = 1002) 4.52 M/UL HEMOGLOBIN (test code = 1003) 13.1 G/DL HEMATOCRIT (test code = 1004) 40.4 % MCV (test code = 1005) 89.4 fL MCH (test code = 1006) 29.0 PG MCHC (test code = 1007) 32.4 G/DL RDW (test code = 1038) 12.6 % NEUTROPHILS (test code = 1008) 57.2 % LYMPHOCYTES (test code = 1010) 31.4 % MONOCYTES (test code = 1011) 6.4 % EOSINOPHILS (test code = 1012) 3.9 % BASOPHILS (test code = 1013) 0.8 % IMMATURE GRANULOCYTES (test code = 1036) 0.3 % NUCLEATED RBCS (test code = 1065) 0.0 /100WBC'S PLATELET COUNT (test code = 1015) 333 K/UL ABSOLUTE NEUTROPHILS (test c ode = 1066) 4.56 K/UL ABSOLUTE LYMPHOCYTES (test c ode = 1067) 2.50 K/UL ABSOLUTE MONOCYTES (test cod e = 1068) 0.51 K/UL ABSOLUTE EOSINOPHILS (test c ode = 1040) 0.31 K/UL ABSOLUTE BASOPHILS (test cod e = 1069) 0.06 K/UL ABS IMMATURE GRANULOCYTES (t est code = 1020) 0.02 K/UL ABS NUCLEATED RBCS (test cod e = 48714) 0.00 K/UL CBC W/AUTO [id number] 00:00:00* Test Item Value Reference Range Interpretation Comme nts WBC (test code = 1001) 8.0 K/UL RBC (test code = 1002) 4.52 M/UL HEMOGLOBIN (test code = 1003) 13.1 G/DL HEMATOCRIT (test code = 1004) 40.4 % MCV (test code = 1005) 89.4 fL MCH (test code = 1006) 29.0 PG MCHC (test code = 1007) 32.4 G/DL RDW (test code = 1038) 12.6 % NEUTROPHILS (test code = 1008) 57.2 % LYMPHOCYTES (test code = 1010) 31.4 % MONOCYTES (test code = 1011) 6.4 % EOSINOPHILS (test code = 1012) 3.9 % BASOPHILS (test code = 1013) 0.8 % IMMATURE GRANULOCYTES (test code = 1036) 0.3 % NUCLEATED RBCS (test code = 1065) 0.0 /100WBC'S PLATELET COUNT (test code = 1015) 333 K/UL ABSOLUTE NEUTROPHILS (test c ode = 1066) 4.56 K/UL ABSOLUTE LYMPHOCYTES (test c ode = 1067) 2.50 K/UL ABSOLUTE MONOCYTES (test cod e = 1068) 0.51 K/UL ABSOLUTE EOSINOPHILS (test c ode = 1040) 0.31 K/UL ABSOLUTE BASOPHILS (test cod e = 1069) 0.06 K/UL ABS IMMATURE GRANULOCYTES (t est code = 1020) 0.02 K/UL ABS NUCLEATED RBCS (test cod e = 08866) 0.00 K/UL CBC W/AUTO [id number] 00:00:00* Test Item Value Reference Range Interpretation Comme nts WBC (test code = 1001) 8.0 K/UL RBC (test code = 1002) 4.52 M/UL HEMOGLOBIN (test code = 1003) 13.1 G/DL HEMATOCRIT (test code = 1004) 40.4 % MCV (test code = 1005) 89.4 fL MCH (test code = 1006) 29.0 PG MCHC (test code = 1007) 32.4 G/DL RDW (test code = 1038) 12.6 % NEUTROPHILS (test code = 1008) 57.2 % LYMPHOCYTES (test code = 1010) 31.4 % MONOCYTES (test code = 1011) 6.4 % EOSINOPHILS (test code = 1012) 3.9 % BASOPHILS (test code = 1013) 0.8 % IMMATURE GRANULOCYTES (test code = 1036) 0.3 % NUCLEATED RBCS (test code = 1065) 0.0 /100WBC'S PLATELET COUNT (test code = 1015) 333 K/UL ABSOLUTE NEUTROPHILS (test c ode = 1066) 4.56 K/UL ABSOLUTE LYMPHOCYTES (test c ode = 1067) 2.50 K/UL ABSOLUTE MONOCYTES (test cod e = 1068) 0.51 K/UL ABSOLUTE EOSINOPHILS (test c ode = 1040) 0.31 K/UL ABSOLUTE BASOPHILS (test cod e = 1069) 0.06 K/UL ABS IMMATURE GRANULOCYTES (t est code = 1020) 0.02 K/UL ABS NUCLEATED RBCS (test cod e = 52735) 0.00 K/UL COMPREHENSIVE METABOLIC [id number] 00:00:00* Test Item Value Reference Range Interpretation Comme nts GLUCOSE (test code = 2217) 84 MG/DL BUN (test code = 2208) 26 MG/DL CREATININE (test code = 2214) 0.65 MG/DL eGFR (2020 CKD-EPI) (test co de = 99780) 98 ML/MIN/1.73 CALC BUN/CREAT (test code = 2235) 40 RATIO SODIUM (test code = 2231) 141 MEQ/L POTASSIUM (test code = 2228) 4.8 MEQ/L CHLORIDE (test code = 2215) 101 MEQ/L CARBON DIOXIDE (test code = 2206) 27 MEQ/L CALCIUM (test code = 2209) 9.5 MG/DL PROTEIN, TOTAL (test code = 2229) 7.5 G/DL ALBUMIN (test code = 2201) 4.7 G/DL CALC GLOBULIN (test code = 2240) 2.8 G/DL CALC A/G RATIO (test code = 2234) 1.7 RATIO BILIRUBIN, TOTAL (test code = 2207) 0.6 MG/DL ALKALINE PHOSPHATASE (test code = 2204) 82 U/L AST (test code = 2218) 20 U/L ALT (test code = 2219) 32 U/L COMPREHENSIVE METABOLIC [id number] 00:00:00* Test Item Value Reference Range Interpretation Comme nts GLUCOSE (test code = 2217) 84 MG/DL BUN (test code = 2208) 26 MG/DL CREATININE (test code = 2214) 0.65 MG/DL eGFR (2020 CKD-EPI) (test co de = 12705) 98 ML/MIN/1.73 CALC BUN/CREAT (test code = 2235) 40 RATIO SODIUM (test code = 2231) 141 MEQ/L POTASSIUM (test code = 2228) 4.8 MEQ/L CHLORIDE (test code = 2215) 101 MEQ/L CARBON DIOXIDE (test code = 2206) 27 MEQ/L CALCIUM (test code = 2209) 9.5 MG/DL PROTEIN, TOTAL (test code = 2229) 7.5 G/DL ALBUMIN (test code = 2201) 4.7 G/DL CALC GLOBULIN (test code = 2240) 2.8 G/DL CALC A/G RATIO (test code = 2234) 1.7 RATIO BILIRUBIN, TOTAL (test code = 2207) 0.6 MG/DL ALKALINE PHOSPHATASE (test code = 2204) 82 U/L AST (test code = 2218) 20 U/L ALT (test code = 2219) 32 U/L LIPID [id number] 00:00:00* Test Item Value Reference Range Interpretation Comme nts CHOLESTEROL (test code = 2210) 194 MG/DL TRIGLYCERIDES (test code = 2232) 81 MG/DL HDL CHOLESTEROL (test code = 2220) 49 MG/DL CALC LDL CHOL (test code = 2237) 127 MG/DL RISK RATIO LDL/HDL (test cod e = 2238) 2.59 RATIO LIPID [id number] 00:00:00* Test Item Value Reference Range Interpretation Comme nts CHOLESTEROL (test code = 2210) 194 MG/DL TRIGLYCERIDES (test code = 2232) 81 MG/DL HDL CHOLESTEROL (test code = 2220) 49 MG/DL CALC LDL CHOL (test code = 2237) 127 MG/DL RISK RATIO LDL/HDL (test cod e = 2238) 2.59 RATIO TSH, THIRD [id number] 00:00:00* Test Item Value Reference Range Interpretation Comme nts TSH, THIRD GENERATION (test code = 2821) 2.590 UIU/ML TSH, THIRD [id number] 00:00:00* Test Item Value Reference Range Interpretation Comme nts TSH, THIRD GENERATION (test code = 2821) 2.590 UIU/ML TSH, THIRD [id number] 00:00:00* Test Item Value Reference Range Interpretation Comme nts TSH, THIRD GENERATION (test code = 2821) 2.590 UIU/ML CBC W/AUTO [id number] 00:00:00* Test Item Value Reference Range Interpretation Comme nts WBC (test code = 1001) 8.0 K/UL RBC (test code = 1002) 4.52 M/UL HEMOGLOBIN (test code = 1003) 13.1 G/DL HEMATOCRIT (test code = 1004) 40.4 % MCV (test code = 1005) 89.4 fL MCH (test code = 1006) 29.0 PG MCHC (test code = 1007) 32.4 G/DL RDW (test code = 1038) 12.6 % NEUTROPHILS (test code = 1008) 57.2 % LYMPHOCYTES (test code = 1010) 31.4 % MONOCYTES (test code = 1011) 6.4 % EOSINOPHILS (test code = 1012) 3.9 % BASOPHILS (test code = 1013) 0.8 % IMMATURE GRANULOCYTES (test code = 1036) 0.3 % NUCLEATED RBCS (test code = 1065) 0.0 /100WBC'S PLATELET COUNT (test code = 1015) 333 K/UL ABSOLUTE NEUTROPHILS (test c ode = 1066) 4.56 K/UL ABSOLUTE LYMPHOCYTES (test c ode = 1067) 2.50 K/UL ABSOLUTE MONOCYTES (test cod e = 1068) 0.51 K/UL ABSOLUTE EOSINOPHILS (test c ode = 1040) 0.31 K/UL ABSOLUTE BASOPHILS (test cod e = 1069) 0.06 K/UL ABS IMMATURE GRANULOCYTES (t est code = 1020) 0.02 K/UL ABS NUCLEATED RBCS (test cod e = 94353) 0.00 K/UL CBC W/AUTO [id number] 00:00:00* Test Item Value Reference Range Interpretation Comme nts WBC (test code = 1001) 8.0 K/UL RBC (test code = 1002) 4.52 M/UL HEMOGLOBIN (test code = 1003) 13.1 G/DL HEMATOCRIT (test code = 1004) 40.4 % MCV (test code = 1005) 89.4 fL MCH (test code = 1006) 29.0 PG MCHC (test code = 1007) 32.4 G/DL RDW (test code = 1038) 12.6 % NEUTROPHILS (test code = 1008) 57.2 % LYMPHOCYTES (test code = 1010) 31.4 % MONOCYTES (test code = 1011) 6.4 % EOSINOPHILS (test code = 1012) 3.9 % BASOPHILS (test code = 1013) 0.8 % IMMATURE GRANULOCYTES (test code = 1036) 0.3 % NUCLEATED RBCS (test code = 1065) 0.0 /100WBC'S PLATELET COUNT (test code = 1015) 333 K/UL ABSOLUTE NEUTROPHILS (test c ode = 1066) 4.56 K/UL ABSOLUTE LYMPHOCYTES (test c ode = 1067) 2.50 K/UL ABSOLUTE MONOCYTES (test cod e = 1068) 0.51 K/UL ABSOLUTE EOSINOPHILS (test c ode = 1040) 0.31 K/UL ABSOLUTE BASOPHILS (test cod e = 1069) 0.06 K/UL ABS IMMATURE GRANULOCYTES (t est code = 1020) 0.02 K/UL ABS NUCLEATED RBCS (test cod e = 57197) 0.00 K/UL CBC W/AUTO [id number] 00:00:00* Test Item Value Reference Range Interpretation Comme nts WBC (test code = 1001) 8.0 K/UL RBC (test code = 1002) 4.52 M/UL HEMOGLOBIN (test code = 1003) 13.1 G/DL HEMATOCRIT (test code = 1004) 40.4 % MCV (test code = 1005) 89.4 fL MCH (test code = 1006) 29.0 PG MCHC (test code = 1007) 32.4 G/DL RDW (test code = 1038) 12.6 % NEUTROPHILS (test code = 1008) 57.2 % LYMPHOCYTES (test code = 1010) 31.4 % MONOCYTES (test code = 1011) 6.4 % EOSINOPHILS (test code = 1012) 3.9 % BASOPHILS (test code = 1013) 0.8 % IMMATURE GRANULOCYTES (test code = 1036) 0.3 % NUCLEATED RBCS (test code = 1065) 0.0 /100WBC'S PLATELET COUNT (test code = 1015) 333 K/UL ABSOLUTE NEUTROPHILS (test c ode = 1066) 4.56 K/UL ABSOLUTE LYMPHOCYTES (test c ode = 1067) 2.50 K/UL ABSOLUTE MONOCYTES (test cod e = 1068) 0.51 K/UL ABSOLUTE EOSINOPHILS (test c ode = 1040) 0.31 K/UL ABSOLUTE BASOPHILS (test cod e = 1069) 0.06 K/UL ABS IMMATURE GRANULOCYTES (t est code = 1020) 0.02 K/UL ABS NUCLEATED RBCS (test cod e = 48870) 0.00 K/UL COMPREHENSIVE METABOLIC [id number] 00:00:00* Test Item Value Reference Range Interpretation Comme nts GLUCOSE (test code = 2217) 84 MG/DL BUN (test code = 2208) 26 MG/DL CREATININE (test code = 2214) 0.65 MG/DL eGFR (2020 CKD-EPI) (test co de = 87675) 98 ML/MIN/1.73 CALC BUN/CREAT (test code = 2235) 40 RATIO SODIUM (test code = 2231) 141 MEQ/L POTASSIUM (test code = 2228) 4.8 MEQ/L CHLORIDE (test code = 2215) 101 MEQ/L CARBON DIOXIDE (test code = 2206) 27 MEQ/L CALCIUM (test code = 2209) 9.5 MG/DL PROTEIN, TOTAL (test code = 2229) 7.5 G/DL ALBUMIN (test code = 2201) 4.7 G/DL CALC GLOBULIN (test code = 2240) 2.8 G/DL CALC A/G RATIO (test code = 2234) 1.7 RATIO BILIRUBIN, TOTAL (test code = 2207) 0.6 MG/DL ALKALINE PHOSPHATASE (test code = 2204) 82 U/L AST (test code = 2218) 20 U/L ALT (test code = 2219) 32 U/L COMPREHENSIVE METABOLIC [id number] 00:00:00* Test Item Value Reference Range Interpretation Comme nts GLUCOSE (test code = 2217) 84 MG/DL BUN (test code = 2208) 26 MG/DL CREATININE (test code = 2214) 0.65 MG/DL eGFR (2020 CKD-EPI) (test co de = 37748) 98 ML/MIN/1.73 CALC BUN/CREAT (test code = 2235) 40 RATIO SODIUM (test code = 2231) 141 MEQ/L POTASSIUM (test code = 2228) 4.8 MEQ/L CHLORIDE (test code = 2215) 101 MEQ/L CARBON DIOXIDE (test code = 2206) 27 MEQ/L CALCIUM (test code = 2209) 9.5 MG/DL PROTEIN, TOTAL (test code = 2229) 7.5 G/DL ALBUMIN (test code = 2201) 4.7 G/DL CALC GLOBULIN (test code = 2240) 2.8 G/DL CALC A/G RATIO (test code = 2234) 1.7 RATIO BILIRUBIN, TOTAL (test code = 2207) 0.6 MG/DL ALKALINE PHOSPHATASE (test code = 2204) 82 U/L AST (test code = 2218) 20 U/L ALT (test code = 2219) 32 U/L LIPID [id number] 00:00:00* Test Item Value Reference Range Interpretation Comme nts CHOLESTEROL (test code = 2210) 194 MG/DL TRIGLYCERIDES (test code = 2232) 81 MG/DL HDL CHOLESTEROL (test code = 2220) 49 MG/DL CALC LDL CHOL (test code = 2237) 127 MG/DL RISK RATIO LDL/HDL (test cod e = 2238) 2.59 RATIO LIPID [id number] 00:00:00* Test Item Value Reference Range Interpretation Comme nts CHOLESTEROL (test code = 2210) 194 MG/DL TRIGLYCERIDES (test code = 2232) 81 MG/DL HDL CHOLESTEROL (test code = 2220) 49 MG/DL CALC LDL CHOL (test code = 2237) 127 MG/DL RISK RATIO LDL/HDL (test cod e = 2238) 2.59 RATIO TSH, THIRD [id number] 00:00:00* Test Item Value Reference Range Interpretation Comme nts TSH, THIRD GENERATION (test code = 2821) 2.590 UIU/ML TSH, THIRD [id number] 00:00:00* Test Item Value Reference Range Interpretation Comme nts TSH, THIRD GENERATION (test code = 2821) 2.590 UIU/ML TSH, THIRD [id number] 00:00:00* Test Item Value Reference Range Interpretation Comme nts TSH, THIRD GENERATION (test code = 2821) 2.590 UIU/ML MRI Knee Right Wo ContMRI Knee Right Wo Cont
--- NOTE | 2023-05-29 15:20 | RAD REPORT ---
EXAM DESCRIPTION: RAD - Knee Right 2 View - 05/29/2023 3:10 pm CLINICAL HISTORY: Post Op COMPARISON: No comparisons FINDINGS: Right total knee arthroplasty. No unexpected postop finding. Skin neema anteriorly. A sm all amount of air is present in the joint.
[2023-05-29] MEDS: CEFAZOLIN 1 GM in NA CHLORIDE 0.9% 50 ML IVPB SCH (17:34)
[2023-05-29 17:52] VITALS: BMI 28.1
[2023-05-29] MEDS: HYDROCODONE/APAP 7.5/325 MG TAB PO PRN ×2 (18:20→23:24)
[2023-05-30] MEDS: CEFAZOLIN 1 GM in NA CHLORIDE 0.9% 50 ML IVPB SCH ×2 (00:26→10:26)
[2023-05-30] MEDS: HYDROCODONE/APAP 7.5/325 MG TAB PO PRN ×2 (03:22→08:20)
[2023-05-30] MEDS: ENOXAPARIN 30 MG/0.3 ML SQ SCH ×2 (05:40→09:00)
[2023-05-30 08:47] VITALS: O2SAT 95
[2023-05-30] MEDS ORDERED: CELECOXIB 100 MG CAPSULE PO SCH (09:00)
[2023-05-30 12:28] VITALS: BP 100/53; TEMP 98.4
== END 2023-05-30 13:50 | disposition home health service (06) ==
LOC: OR 09:36 → 2ND 14:59
PROVIDERS: ADMIT Orthopaedic Surgery Sports Medicine; ATTEND Orthopaedic Surgery Sports Medicine
PROC: 0SRC069 Replacement of Right Knee Joint with Oxidized Zirconium on Polyethylene Synthetic Substitute, Cemented, Open Approach (ICD-10-PCS; principal; 2023-05-29 12:00)
DX: M17.11 Unilateral primary osteoarthritis, right knee (principal)
CPT/HCPCS: 85025; 80048; 36415 ×3; 85610; 88305; 88311; 85730; 85018 ×2; 85014 ×2; 71046; 73560; 97110; 97116; 97139; 97161; 97530; 94010; 27447; C1776; J3475; A4216; J2704; J2001 ×2; J1650; J2250; J3010; J1100 ×2; J0171; J2405; J7120; J0690 ×4; G0378; G0379